=== PATIENT | male | born 1965 | race Caucasian/White ===

== ENCOUNTER 2017-01-17 09:14 | Emergency (ER) | payer OTHER ==
[~2017-01-17] VITALS: Ht 182.9 cm; Wt 73.3 kg
[2017-01-17] MEDS ORDERED: SODIUM CHLORIDE FLUSH 10ML SYR IVF ONE (10:00)
[2017-01-17] MEDS ORDERED: ASPIRIN 81 MG TABLET CHEW PO ONE (10:00)
[2017-01-17] MEDS ORDERED: LORazepam 2 MG/ML, 1ML IVPush ONE (10:00)
[2017-01-17] MEDS ORDERED: KETOROLAC 30 MG/1 ML IVPush ONE (10:00)
[2017-01-17 10:13] LABS: HEMATOCRIT 44.5 % (39.2-51.8); HEMOGLOBIN 14.8 g/dL (13.7-18.0); WHITE BLOOD COUNT 10.9 x10^3/uL (3.4-10)
[2017-01-17 10:27] LABS: BLOOD UREA NITROGEN 20 mg/dL (7-18)
[2017-01-17] MEDS ORDERED: ASPIRIN 81 MG TABLET CHEW ONE (10:31)
[2017-01-17] MEDS ORDERED: KETOROLAC 30 MG/1 ML ONE (10:31)
[2017-01-17 10:32] LABS: IS PT STATUS REG ER OR PRE ER? YES
[2017-01-17] MEDS ORDERED: LORazepam 2 MG/ML, 1ML ONE (10:32)
[2017-01-17 12:39] VITALS: BP 147/95
== END 2017-01-17 12:59 | disposition home or self-care (01) ==
LOC: ED 11:11
DX: R07.89 Other chest pain (principal); M94.0 Chondrocostal junction syndrome [Tietze]
CPT/HCPCS: 36415; 71010; 80048; 82040; 83880; 84484; 85025; 93005; 96374; 96375; 99285; J1885; J2060

== ENCOUNTER 2019-04-09 01:41 | Emergency (ER) | payer OTHER ==
[~2019-04-09] VITALS: Ht 180.3 cm; Wt 77.7 kg
[2019-04-09 01:45] VITALS: BP 185/119
--- NOTE | 2019-04-09 02:01 | NUR ---
REPORT GIVEN TO RADHA HAJI. PLAN OF CARE DISCUSSED. RADHA HAJI TO ASSUME CARE AT THIS TIME
[2019-04-09] MEDS ORDERED: CLINDAMYCIN PMX 600MG/50ML 50 ML ONE (02:04)
[2019-04-09] MEDS ORDERED: PROPOFOL 10 MG/ML, 20ML IVPush ONE (02:30)
[2019-04-09] MEDS ORDERED: CLINDAMYCIN PMX 600MG/50ML 50 ML IV ONE (02:30)
[2019-04-09] MEDS ORDERED: SODIUM CHLORIDE FLUSH 10ML SYR IVF ONE (02:30)
[2019-04-09] MEDS ORDERED: PROPOFOL 10 MG/ML, 20ML ONE (02:30)
== END 2019-04-09 04:33 | disposition home or self-care (01) ==
LOC: ED 01:53
DX: L03.313 Cellulitis of chest wall (principal); L02.213 Cutaneous abscess of chest wall; I10 Essential (primary) hypertension
CPT/HCPCS: 10060; 71045; 99152; 99285

== ENCOUNTER 2019-04-11 04:58 | Emergency (ER) | payer OTHER ==
[~2019-04-11] VITALS: Ht 180.3 cm; Wt 77.6 kg
[2019-04-11 05:02] VITALS: BP 189/109
[2019-04-11] MEDS ORDERED: OXYcodone/APAP 10/325MG TABLET ONE (06:16)
--- NOTE | 2019-04-11 06:29 | NUR ---
RN to bedside, patient resting in chair, patient has hospital gown on, large reddened swollen area tender to the touch on right chest. Patient had been treated in this ED, clearly marked area surrounding area patient reports was the extent of the redness. Erythemetous area has decreased in size per patient is visually smaller in size compared to previously marked area. Patient denies needs on RN's initial visit to room. Provider to bedside, assessed area and removed previous packing. Patient reports being very tender. RN returned after with ordered medications (see electronic medical administration record) Patient informed that the medication would take time for maximum effect and the physician would return in half an hour to forty five minutes after administration. Patient agreeable to plan of care. Sitting in chair comfortably with warm compress in place. Denies further needs.
[2019-04-11] MEDS ORDERED: OXYcodone/APAP 10/325MG TABLET PO ONE (06:30)
--- NOTE | 2019-04-11 06:56 | NUR ---
Gave report to oncoming nurse, covered interventions and plan of care.
--- NOTE | 2019-04-11 06:56 | NUR ---
i am assuming care of this pt from rosa ([place]) at this time. sbar report was exchanged at the bedside.
== END 2019-04-11 07:39 ==
LOC: ED 07:33
DX: L02.213 Cutaneous abscess of chest wall (principal)
CPT/HCPCS: 99283